=== PATIENT | female | born 1975 | race American Indian/Alaskan Native ===

== ENCOUNTER 2018-06-02 10:52 | Outpatient (CLI) | payer MEDICAID | END 2018-06-02 10:53 | disposition home or self-care (01) | LOC: C.CARD 10:52 | DX: C50.911 Malignant neoplasm of unspecified site of right female breast (principal); Z17.0 Estrogen receptor positive status [ER+]; C79.51 Secondary malignant neoplasm of bone ==

== ENCOUNTER 2018-08-18 09:37 | Outpatient (CLI) | payer MEDICAID | END 2018-08-18 09:38 | disposition home or self-care (01) | LOC: C.RADH 09:37 ==

== ENCOUNTER 2018-08-29 10:09 | Outpatient (CLI) | payer MEDICAID | END 2018-08-29 10:10 | disposition home or self-care (01) | LOC: C.CTH 10:09 ==